=== PATIENT | female | born 1990 | race Caucasian/White ===

== ENCOUNTER 2018-10-10 13:33 | Emergency (ER) | payer OTHER ==
[2018-10-10 13:37] VITALS: BP 131/86; PULSE 80; RESP 18; TEMP 97.5
--- NOTE | 2018-10-10 14:14 | ED ---
General Adult HPI - General Chief complaint: ENT Stated complaint: FB in ear Time Seen by Provider: 10/10/18 13:58 Source: patient, RN notes reviewed Mode of arrival: ambulatory Limitations: no limitations - History of Present Illness Initial comments: 28-year-old female presents to the emergency department for a chief complaint of possible foreign body in the ear. Patient states that she was cleaning her ear with a Q-tip earlier today and when she pulled out the Q-tip the soft part was missing. Patient states her ear canal feels somewhat irritated and feels that there is something in it. Patient has no other complaints at this time including shortness of breath, chest pain, abdominal pain, nausea or vomiting, headache, or visual changes. - Related Data Allergies Allergy/AdvReac Type Severity Reaction Status Date / Time No Known Allergies Allergy Verified 10/10/18 13:36 Review of Systems ROS Statement: Those systems with pertinent positive or pertinent negative responses have been documented in the HPI. ROS Other: All systems not noted in ROS Statement are negative. Past Medical History Past Medical History: No Reported History History of Any Multi-Drug Resistant Organisms: None Reported Additional Past Surgical History / Comment(s): implanon, right nephrectomy Past Psychological History: No Psychological Hx Reported Smoking Status: Current every day smoker Past Alcohol Use History: Occasional Past Drug Use History: Marijuana General Exam Limitations: no limitations General appearance: alert, in no apparent distress Head exam: Present: atraumatic, normocephalic, normal inspection Eye exam: Present: normal appearance, PERRL, EOMI. Absent: scleral icterus, conjunctival injection, periorbital swelling ENT exam: Present: normal exam, normal oropharynx, mucous membranes moist, TM's normal bilaterally (Tympanic membrane appears within normal limit of the right ear), normal external ear exam (No evidence for foreign body in the right or left ear, full external auditory canals were visualized without any difficulty.) Neck exam: Present: normal inspection, full ROM. Absent: tenderness, meningismus, lymphadenopathy Respiratory exam: Present: normal lung sounds bilaterally. Absent: respiratory distress, wheezes, rales, rhonchi, stridor Cardiovascular Exam: Present: regular rate, normal rhythm, normal heart sounds. Absent: systolic murmur, diastolic murmur, rubs, gallop, clicks Neurological exam: Present: alert, oriented X3, CN II-XII intact Psychiatric exam: Present: normal affect, normal mood Course Vital Signs 10/10/18 13:34 Temperature 97.5 F L Pulse Rate 80 Respiratory 18 Rate Blood Pressure 131/86 O2 Sat by Pulse 98 Oximetry Medical Decision Making - Medical Decision Making 28-year-old female presents for possible foreign body in the right ear after cleaning her right ear with a Q-tip earlier today. Patient states the cotton part of the Q-tip was missing so she thought it got stuck in her ear. On exam I do not see evidence of a foreign body in the ear. Full external auditory canal was visualized, tympanic membrane appears within normal limits. No evidence of foreign body. Patient be discharged home at this time. She is to return if she has any worsening symptoms. Disposition Clinical Impression: Normal exam Disposition: HOME SELF-CARE Condition: Good Instructions (If sedation given, give patient instructions): Ear Foreign Body (ED) Additional Instructions: Please follow up with primary care in 1-2 days. If you have any worsening symptoms then returned here to the emergency department. Is patient prescribed a controlled substance at d/c from ED?: No Referrals: Kendell Barth MD [REFERRING] - 1-2 days Time of Disposition: 14:14
== END 2018-10-10 14:27 | disposition home or self-care (01) ==
LOC: EC 13:33
DX: Z00.00 Encounter for general adult medical examination without abnormal findings (principal); F17.200 Nicotine dependence, unspecified, uncomplicated; Z90.5 Acquired absence of kidney
CPT/HCPCS: 99282